=== PATIENT | male | born 1970 | race Caucasian/White ===

== ENCOUNTER 2021-05-13 08:52 | Emergency (ER) | payer SELFPAY ==
[~2021-05-13] VITALS: Ht 172.7 cm; Wt 66.8 kg
[2021-05-13] MEDS ORDERED: IV NORMAL SALINE 1000ML BAG 1,000 ML IV ONE (09:00)
--- NOTE | 2021-05-13 09:11 | PHYS DOC ---
Adult General Chief Complaint Chief Complaint: ALTERED MENTAL STATUS HPI HPI Patient is a 50 year old male presenting to the emergency department in unusual circumstances that he was sleeping on the side of the road in his vehicle. [employer] went to go check on him and woke him up. Patient is very difficult and was unwilling to answer questions for EMS and is initially unwilling to give his name or information in the emergency department and would not sign the computer for EMS. I asked the patient if he wants to be seen here for the passing out episode and he initially said that he was unsure and I told him if he does not want to see be seen in the emergency department he does not have to he just has to give me his name date of his location and the date. He then said that he wanted to be seen and was willing to answer most questions. Patient said that he was in [facility] but not did not know the name of this hospital and he knew that we were in the but did not know the exact date. He was not willing to answer questions about drug or alcohol use and he was apprehensive about which test I would be checking on him. Patient says that he has no medical problems including no seizures and that he takes no medications on a regular basis. He is in no acute distress with normal vital signs. Review of Systems Review of Systems Constitutional: Denies fever or chills [] Eyes: Denies change in visual acuity, redness, or eye pain [] HENT: Denies nasal congestion or sore throat [] Respiratory: Denies cough or shortness of breath [] Cardiovascular: No additional information not addressed in HPI [] GI: Denies abdominal pain, nausea, vomiting, bloody stools or diarrhea [] : Denies dysuria or hematuria [] Musculoskeletal: Denies back pain or joint pain [] Integument: Denies rash or skin lesions [] Neurologic: Denies headache, focal weakness or sensory changes [] All other systems were reviewed and found to be within normal limits, except as documented in this note. Current Medications Current Medications Current Medications Medications (Trade) Dose Ordered Sig/Alisha Start Time Stop Time Status Last Admin Dose Admin Sodium Chloride 1,000 ml @ 1,000 mls/hr 1X ONCE 05/13/21 09:00 05/13/21 09:59 DC 05/13/21 09:33 1,000 MLS/HR Allergies Allergies Allergies Coded Allergies Type Severity Reaction Last Updated Verified No Known Drug Allergies 05/13/21 No Physical Exam Physical Exam Constitutional: Well developed, well nourished, no acute distress, non-toxic appearance. [] HENT: Normocephalic, atraumatic, bilateral external ears normal, oropharynx moist, no oral exudates, nose normal. [] Eyes: PERRLA, EOMI, conjunctiva normal, no discharge. [] Neck: Normal range of motion, no tenderness, supple, no stridor. [] Cardiovascular:Heart rate regular rhythm, no murmur [] Lungs & Thorax: Bilateral breath sounds clear to auscultation [] Abdomen: Bowel sounds normal, soft, no tenderness, no masses, no pulsatile masses. [] Skin: Warm, dry, no erythema, no rash. [] Back: No tenderness, no CVA tenderness. [] Extremities: No tenderness, no cyanosis, no clubbing, ROM intact, no edema. [] Neurologic: Alert and oriented X 2, normal motor function, normal sensory function, no focal deficits noted. [] Current Patient Data Vital Signs Vital Signs Date Time Temp Pulse Resp B/P (MAP) Pulse Ox O2 Delivery O2 Flow Rate FiO2 05/13/21 10:54 108 16 156/74 (101) 100 Room Air 05/13/21 08:52 98.6 98.6 Lab Values Laboratory Tests Test 05/13/21 09:35 White Blood Count 8.7 x10^3/uL (4.0-11.0) Red Blood Count 4.32 x10^6/uL (4.30-5.70) Hemoglobin 14.0 g/dL (13.0-17.5) Hematocrit 40.8 % (39.0-53.0) Mean Corpuscular Volume 95 fL (79-100) Mean Corpuscular Hemoglobin 33 pg (25-35) Mean Corpuscular Hemoglobin Concent 34 g/dL (31-37) Red Cell Distribution Width 12.8 % (11.5-14.5) Platelet Count 327 x10^3/uL (140-400) Neutrophils (%) (Auto) 74 % (31-73) H Lymphocytes (%) (Auto) 17 % (24-48) L Monocytes (%) (Auto) 8 % (0-9) Eosinophils (%) (Auto) 1 % (0-3) Basophils (%) (Auto) 1 % (0-3) Neutrophils # (Auto) 6.4 x10^3/uL (1.8-7.7) Lymphocytes # (Auto) 1.4 x10^3/uL (1.0-4.8) Monocytes # (Auto) 0.7 x10^3/uL (0.0-1.1) Eosinophils # (Auto) 0.1 x10^3/uL (0.0-0.7) Basophils # (Auto) 0.1 x10^3/uL (0.0-0.2) Sodium Level 142 mmol/L (136-145) Potassium Level 4.0 mmol/L (3.5-5.1) Chloride Level 106 mmol/L (98-107) Carbon Dioxide Level 27 mmol/L (21-32) Anion Gap 9 (6-14) Blood Urea Nitrogen 15 mg/dL (8-26) Creatinine 0.8 mg/dL (0.7-1.3) Estimated GFR (Cockcroft-Gault) 102.3 BUN/Creatinine Ratio 19 (6-20) Glucose Level 99 mg/dL (70-99) Calcium Level 8.2 mg/dL (8.5-10.1) L Total Bilirubin 0.3 mg/dL (0.2-1.0) Aspartate Amino Transferase (AST) 13 U/L (15-37) L Alanine Aminotransferase (ALT) 23 U/L (16-63) Alkaline Phosphatase 75 U/L (46-116) Total Protein 6.4 g/dL (6.4-8.2) Albumin 3.4 g/dL (3.4-5.0) Albumin/Globulin Ratio 1.1 (1.0-1.7) Salicylates Level < 0.2 mg/dL (2.8-20.0) L Salicylate Last Dose Date Unknown Salicylate Last Dose Time Unknown Acetaminophen Level < 2 mcg/ml (10-30) L Acetaminophen Last Dose Date Unknown Acetaminophen Last Dose Time Unknown Ethyl Alcohol Level < 10 mg/dL (0-10) Laboratory Tests 05/13/21 09:35 Laboratory Tests 05/13/21 09:35 EKG EKG Sinus rhythm at 78 bpm with normal axis no deviation no ST elevation or depression and normal T waves with normal intervals. Radiology/Procedures Radiology/Procedures [] Course & Med Decision Making Course & Med Decision Making Patient has altered mental status from unknown cause so will check labs and imaging and observe closely. Patient's labs are unremarkable and he did urinate but he did not urinate in a specimen cup as he was unwilling to provide a urine sample. Patient says that he has an ingrown pain on on his left big toe which she does and there is slight surrounding erythema I told him I will prescribe him antibiotics but he would need to follow with a papeterie table assembler. Patient is now alert and oriented x3 and able to ambulate with a steady gait. He seems to be somewhat paranoid his he said someone was trying to steal something from him and I asked him if he could have the PAT team come speak to him regarding his visit in the emergency department today. Patient refused stating that he does not want to be in the emergency department and wants to be discharged now. Given patient appears well with normal vital signs benign physical exam work-up and is requesting to be discharged I will discharge him in stable condition. He is alert and oriented x3 and ambulates with a steady gait and is able to make his own medical decisions and has the capacity to make his own decisions at this time. He is not a danger to self or others. Patient was told to follow with primary care provider within 3 to 4 days and come back to emergency department sooner with worsening pain neurologic changes or other general concerns. Patient aware and agreeable with plan and verbalized understanding of the above instructions. Dragon Disclaimer Dragon Disclaimer This electronic medical record was generated, in whole or in part, using a voice recognition dictation system. Departure Departure Impression: Primary Impression: Ingrown nail of great toe of left foot Additional Impressions: Paranoia Confusion Disposition: 01 HOME / SELF CARE / HOMELESS Condition: IMPROVED Patient Instructions: Ingrown Toenail Scripts Cephalexin (KEFLEX) 500 Mg Capsule 500 MG PO QID for 7 Days, #28 CAP Prov: CRAIG JHAVERI DO 05/13/21 Problem Qualifiers CRAIG JHAVERI DO May 13, 2021 09:11
[2021-05-13 09:57] LABS: BASO # 0.1 x10^3/uL (0.0-0.2); BASO % 1 % (0-3); EOS # 0.1 x10^3/uL (0.0-0.7); EOS % 1 % (0-3); HEMATOCRIT 40.8 % (39.0-53.0); LYMPH # 1.4 x10^3/uL (1.0-4.8); LYMPH % 17 % (24-48); MEAN CORPUSCULAR HEMOGLOBIN 33 pg (25-35); MEAN CORPUSCULAR HGB CONC 34 g/dL (31-37); MEAN CORPUSCULAR VOLUME 95 fL (79-100); MONO # 0.7 x10^3/uL (0.0-1.1); MONO % 8 % (0-9); NEUT # 6.4 x10^3/uL (1.8-7.7); NEUT % 74 % (31-73); PLATELET COUNT 327 x10^3/uL (140-400); RED BLOOD COUNT 4.32 x10^6/uL (4.30-5.70); RED CELL DISTRIBUTION WIDTH 12.8 % (11.5-14.5); WHITE BLOOD COUNT 8.7 x10^3/uL (4.0-11.0)
--- NOTE | 2021-05-13 10:05 | RAD ---
Axial CT images of the head were obtained without IV contrast. Comparison: None. Indication: Altered mental status Findings: No mass effect or hemorrhage is seen. The ventricles are not enlarged or effaced. No midline shift is noted. There is no intra or extra axial fluid collection. Focal area of nonspecific hypodensity in t he left periventricular region nonspecific may relate to prior ischemic event No bony or soft tissue abnormality is seen. The visualized paranasal sinuses are clear. Impression: 1. No acute intracranial process seen on non- contrast head CT. Exposure: One or more of the following individualized dose reduction techniques were utilized for thi s examination: 1. Automated exposure control 2. Adjustment of the mA and/or kV according to patient size 3. Use of iterative reconstruction technique Electronically signed by: Eulalio Fonseca MD (05/13/2021 10:02 AM) [id number]
[2021-05-13 10:07] LABS: CALCIUM 8.2 mg/dL (8.5-10.1); CREATININE 0.8 mg/dL (0.7-1.3); GFR 102.3
[2021-05-13 10:14] LABS: ALBUMIN 3.4 g/dL (3.4-5.0); ALBUMIN/GLOBULIN RATIO 1.1 (1.0-1.7); ETHANOL < 10 mg/dL (0-10); TOTAL BILIRUBIN 0.3 mg/dL (0.2-1.0); TOTAL PROTEIN 6.4 g/dL (6.4-8.2)
[2021-05-13 10:15] LABS: ACETAMIN < 2 mcg/ml (10-30); SALIC < 0.2 mg/dL (2.8-20.0)
[2021-05-13 10:54] VITALS: BP 156/74
[2021-05-13] MEDS ORDERED: CEPH500C PO (12:29)
--- NOTE | 2021-05-14 06:06 | EKG ---
[facility] [address] [place] [id number] Test Date: 2021-05-13 Test Time: 09:02:24 Pat Name: YANY GANDHI Department: Room: Gender: M Epic Specialist: : [id number] Requested By: CRAIG JHAVERI Order Number: [id number] Reading MD: Hernan Kerr Measurements Intervals [place] Rate: 78 P: 34 MN: 138 QRS: 7 QRSD: 74 T: -10 QT: 360 QTc: 414 Interpretive Statements SINUS RHYTHM NORMAL ECG RI6.02 No previous ECG available for comparison Electronically Signed On 05-20-2021 14:17:28 CDT by Hernan Kerr
== END 2021-05-13 12:53 | disposition home or self-care (01) ==
LOC: ER 08:52
DX: L60.0 Ingrowing nail (principal); F22 Delusional disorders; R41.0 Disorientation, unspecified
CPT/HCPCS: 36415; 70450; 80053; 80329; 85025; 93005; 96360; 99285; G0480; J7030